=== PATIENT | female | born 1985 ===

== ENCOUNTER → 2023-10-21 09:07 | Outpatient (CLI) | payer OTHER, SELFPAY ==
--- NOTE | ~2023-10-21 | MR_ITS ---
EXAMINATION: MR ankle LT wo con DATE: 10/21/2023 10:06 INDICATION: Left ankle pain. Avulsion fracture. TECHNIQUE: Magnetic resonance imaging (MRI) of the left ankle was performed without intravenous contr ast. Sequences included sagittal PD-weighted FS FSE, sagittal PD-weighted FSE, coronal PD-weighted FS FSE, coronal PD-weighted FSE, axial PD-weighted FS FSE, and axial PD-weighted FSE. COMPARISON: None. FINDINGS: Medial ankle ligaments: There are changes of prior sprain of deltoid ligament characterized by thickening and increased signa l of the superficial component and heterogeneous signal in the deep component. Lateral ankle ligaments: There is an avulsion fracture of anterior aspect of distal fibula at the attachment of anterior talof ibular ligament. Anterior talofibular ligament demonstrates thickening and increased signal intensity and poor distal visualization, consistent with sprain. There is thickening and increased signal invo lving calcaneofibular ligament, posterior talofibular ligament, and anterior tibiofibular ligament, c onsistent with sprains. Posterior tibiofibular ligament is intact. Tendons: The medial and anterior ankle tendons and Achilles tendon are normal. There is a longitudinal split t ear of peroneus brevis tendon. Peroneus longus tendon is normal. Plantar fascia: Normal. Bones/other: Bone alignment is normal. The subtalar joints and midfoot joints are unremarkable. Fluid: There is an ankle joint effusion. IMPRESSION: 1. Avulsion fracture of distal fibula at the attachment of anterior talofibular ligament. 2. Medial and lateral ankle sprains. 3. Longitudinal split tear of peroneus brevis tendon. Reviewed, dictated and finalized at location A. [employer] [employer]
== END ==
DX: S82.892A Other fracture of left lower leg, initial encounter for closed fracture (principal); S93.402A Sprain of unspecified ligament of left ankle, initial encounter; X58.XXXA Exposure to other specified factors, initial encounter
CPT/HCPCS: 73721